=== PATIENT | male | born 1985 | race Two or more races ===

== ENCOUNTER → 2023-10-10 | Outpatient (REF) | payer OTHER ==
[2023-10-10 09:23] LABS: SEMEN APPEARANCE OPAQUE (OPAQUE); SEMEN VISCOSITY LIQUID (LIQUID); SEMEN VOLUME 1.4 ml (2.0-5.0); SEMEN pH 8.5 (7.0-8.0); SPERM CONCENTRATION 43.5 M/ml (>=15.0); WBC CONCENTRATION <=1 M/ml (<=1 M/ml)
== END ==
LOC: M LAB REF 09:09
PROVIDERS: ATTEND Nurse Practitioner
DX: Z31.9 Encounter for procreative management, unspecified (principal)

== ENCOUNTER 2023-10-21 20:44 | Emergency (ER) | payer MEDICAID, OTHER ==
[~2023-10-21] VITALS: Ht 180.3 cm; Wt 103.7 kg
[2023-10-21 23:03] LABS: Trichomonas vaginalis (AMP) NOT DETECTED (NEGATIVE)
[2023-10-21 23:27] LABS: GC DNA AMPLIFICATION NEGATIVE (NEGATIVE)
[2023-10-22] MEDS ORDERED: LEVO1TAB39 PO (00:45)
[2023-10-22] MEDS ORDERED: NAPR-837 PO (00:45)
[2023-10-22] MEDS: NAPROXEN 250 MG TAB PO ONE (00:49)
[2023-10-22] MEDS: LevoFLOXacin 500 MG TABLET PO ONE (00:49)
[2023-10-22 00:54] VITALS: BP 140/68; TEMP 98; O2SAT 100
== END 2023-10-22 00:55 | disposition home or self-care (01) ==
LOC: M ED 20:44
DX: N45.1 Epididymitis (principal); Z79.1 Long term (current) use of non-steroidal anti-inflammatories (NSAID); Z79.2 Long term (current) use of antibiotics